=== PATIENT | male | born 1935 | race Caucasian/White ===

== ENCOUNTER 2020-11-24 09:23 | Outpatient (CLI) | payer MEDICARE | END 2020-11-24 23:59 | disposition home or self-care (01) | LOC: RAD 09:23 | PROVIDERS: ATTEND Family Medicine | DX: M51.37 Other intervertebral disc degeneration, lumbosacral region (principal); M48.07 Spinal stenosis, lumbosacral region; N13.30 Unspecified hydronephrosis; N13.4 Hydroureter | CPT/HCPCS: 72148 ==